=== PATIENT | male | born 1960 | race Two or more races ===

== ENCOUNTER 2020-05-25 07:30 | Outpatient (CLI) | payer OTHER | END 2020-05-25 07:40 | disposition home or self-care (01) | LOC: RAD 07:30 | PROVIDERS: ATTEND General Practice | DX: M40.47 Postural lordosis, lumbosacral region (principal); M54.16 Radiculopathy, lumbar region; S39.002A Unspecified injury of muscle, fascia and tendon of lower back, initial encounter | CPT/HCPCS: 72149 ==

== ENCOUNTER 2020-05-25 07:49 | Outpatient (CLI) | payer OTHER | END 2020-05-25 07:55 | disposition home or self-care (01) | LOC: LAB 07:49 | PROVIDERS: ATTEND Radiology Diagnostic Radiology | DX: S39.848A Other specified injuries of external genitals, initial encounter (principal) ==